=== PATIENT | female | born 1990 | race Two or more races ===

== ENCOUNTER 2019-10-09 15:27 | Inpatient (IN) | payer OTHER ==
[~2019-10-09] VITALS: Ht 162.6 cm; Wt 77.1 kg
[2019-10-09] MEDS ORDERED: PRENATAL TABLE1 EAC1 PO (15:55)
== END 2019-10-12 14:18 | disposition home or self-care (01) | DRG 807 ==
LOC: LDR 15:27 → SURG-SUITE 15:27 → OB/GYN 10-10 12:38 → SURG-SUITE 10-10 15:26
PROVIDERS: ADMIT Obstetrics & Gynecology; ATTEND Obstetrics & Gynecology
PROC: 10907ZC Drainage of Amniotic Fluid, Therapeutic from Products of Conception, Via Natural or Artificial Opening (ICD-10-PCS; 2019-10-09)
PROC: 4A1HXCZ Monitoring of Products of Conception, Cardiac Rate, External Approach (ICD-10-PCS; 2019-10-09)
PROC: 3E033VJ Introduction of Other Hormone into Peripheral Vein, Percutaneous Approach (ICD-10-PCS; 2019-10-09)
PROC: 10E0XZZ Delivery of Products of Conception, External Approach (ICD-10-PCS; principal; 2019-10-10)
DX: O80 Encounter for full-term uncomplicated delivery (principal); Z37.0 Single live birth; Z3A.37 37 weeks gestation of pregnancy; Z20.828 Contact with and (suspected) exposure to other viral communicable diseases